=== PATIENT | male | born 1985 | race Caucasian/White ===

== ENCOUNTER 2019-06-15 20:41 | Emergency (ER) | payer BC ==
--- NOTE | 2019-06-15 21:00 | ED ---
Influenza-Like Illness - HPI Summary HPI Summary: 34-year-old male no significant past medical history presents to the emergency department today with a chief complaint of cough, nasal congestion, sore throat , fatigue, right ear pain 1 day. Patient's girlfriend was recently diagnosed with influenza one week ago. Patient states he is taking Tylenol Cold and flu prior to arrival for his symptoms. Patient otherwise feels well and denies fever, chest pain, abdominal pain, shortness of breath, pain with urination, nausea, vomiting, diarrhea. Hearing is grossly intact. Surgical history family history is noncontributory. - History of Current Complaint Chief Complaint: EDFluSymptoms Time Seen by Provider: 06/15/19 20:52 Hx Obtained From: Patient Onset/Duration: Gradual Onset Severity: Moderate Associated Signs & Symptoms: Cough, Sore Throat, Nasal Congestion Related Hx: Possible Flu/Infectious Exposure - Allergy/Home Medications Allergies/Adverse Reactions: Allergies Allergy/AdvReac Type Severity Reaction Status Date / Time No Known Allergies Allergy Verified 06/15/19 20:43 Home Medications: Home Medications NK [No Home Medications Reported] 06/15/19 [History Confirmed 06/15/19] PMH/Surg Hx/FS Hx/Imm Hx Infectious Disease History: No Infectious Disease History: Denies: Traveled Outside the [place] in Last 30 Days Review of Systems Constitutional: Negative Eyes: Negative Positive: Sore Throat, Ear Ache, Nasal Discharge Cardiovascular: Negative Positive: Cough. Negative: Shortness Of Breath Gastrointestinal: Negative Genitourinary: Negative Musculoskeletal: Negative Skin: Negative Neurological/Mental Status: Negative Psychological: Normal All Other Systems Reviewed And Are Negative: Yes Physical Exam - Summary Physical Exam Summary: Patient is no acute distress. Inspection of the TMs reveals pearly wetzel tympanic membrane with good cone of light in good position bilaterally. Triage Information Reviewed: Yes Vital Signs On Initial Exam: Initial Vitals Temp Pulse Resp BP Pulse Ox 99.6 F 83 18 121/73 98 06/15/19 20:44 06/15/19 20:44 06/15/19 20:44 06/15/19 20:44 06/15/19 20:44 Vital Signs Reviewed: Yes Appearance: Positive: Well-Appearing, No Pain Distress, Well-Nourished Skin: Positive: Warm, Skin Color Reflects Adequate Perfusion Eyes: Positive: EOMI, MAXWELL ENT: Positive: Hearing grossly normal, TMs normal Respiratory/Lung Sounds: Positive: Clear to Auscultation, Breath Sounds Present Cardiovascular: Positive: RRR, S1, S2 Abdomen Description: Positive: Nontender, Soft Bowel Sounds: Positive: Present Musculoskeletal: Positive: Strength/ROM Intact Neurological: Positive: Sensory/Motor Intact, Alert, Oriented to Person Place, Time, Normal Gait, Facial Symmetry, Speech Normal Psychiatric: Positive: Normal, Affect/Mood Appropriate AVPU Assessment: Alert Procedures - Sedation Patient Received Moderate/Deep Sedation with Procedure: No Diagnostics - Vital Signs Vital Signs Temp Pulse Resp BP Pulse Ox 06/15/19 20:44 99.6 F 83 18 121/73 98 - Laboratory Lab Results: Lab Results 06/15/19 Range/Units 20:44 Influenza A (Rapid) Pending Influenza B (Rapid) Pending Lab Statement: Any lab studies that have been ordered have been reviewed, and results considered in the medical decision making process. Flu Symptom Course/Dx - Course Course Of Treatment: Patient was evaluated in the emergency department today for implant-like illness. Patient examined, patient febrile. TMs within normal limits. Ear pain likely secondary to nasal congestion. Patient given 600 mg ibuprofen in the emergency department for fever and ear pain. Influenza serology returned showing negative for influenza. Chest x-ray negative for acute pathology. Patient diagnosed with viral upper respiratory infection. Patient discharged to outpatient follow-up. - Diagnoses Differential Diagnosis/HQI/PQRI: Positive: Bronchitis, Influenza, RSV, Upper Respiratory Infection Provider Diagnoses: Upper respiratory infection Discharge ED - Sign-Out/Discharge Documenting (check all that apply): Patient Departure - Discharge Plan Condition: Stable Disposition: HOME Patient Education Materials: Upper Respiratory Infection (ED) Forms: *Work Release Additional Instructions: You were seen in the emergency department today and diagnosed with an upper respiratory infection. Viruses are self-limiting and will go away on their own. Be sure to stay hydrated and rest. You may take [id number] decongestants as needed for your symptoms as well as NyQuil at night to improve sleep. Take Tylenol every 6 hours as needed for fever. Please see your primary care physician in 5 days for further evaluation and management. Please do not return to work or school until 24 hours after your fever breaks. Please return to the emergency department immediately if you develop any new or worsening symptoms. - Billing Disposition and Condition Condition: STABLE Disposition: Home
[2019-06-15] MEDS ORDERED: Ibuprofen TAB* 600 MG PO ONE (21:05)
[2019-06-15 21:13] LABS: Influenza A Molecular Negative (Negative); Influenza B Molecular Negative (Negative)
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
[2019-06-15 21:48] VITALS: BP 117/70
== END 2019-06-15 21:47 | disposition home or self-care (01) ==
LOC: ED 20:41
DX: J06.9 Acute upper respiratory infection, unspecified (principal)
CPT/HCPCS: 71046; 99282; A9270-GY